=== PATIENT | male | born 1955 | race African-American/Black ===

== ENCOUNTER 2023-03-05 21:03 | Emergency (ER) | payer OTHER ==
[~2023-03-05] VITALS: Ht 188 cm; Wt 94.0 kg
[~2023-03-05 21:03] MED LIST: NIFE30TA83 PO
[2023-03-05 21:10] VITALS: TEMP 98.3; O2SAT 99
[2023-03-05] MEDS ORDERED: BACITRACIN ZINC OINT UDPKT TOP ONE (23:15)
[2023-03-05] MEDS ORDERED: LIDOCAINE HCL/EPINEPHRINE 1%-EPI 1:100,000 20 ML VIAL INFIL ONE (23:15)
[2023-03-05] MEDS ORDERED: HYDROCODONE/ACETAMINOPHEN 5/325MG TABLET PO ONE (23:30)
[2023-03-05] MEDS ORDERED: IBUPROFEN 400MG TABLET ONE (23:34)
[2023-03-05 23:45] VITALS: BP 136/78; PULSE 92; RESP 16
[2023-03-05] MEDS ORDERED: IBUPROFEN 800MG TABLET PO ONE (23:45)
[2023-03-05 23:56] LABS: HEPATITIS B SURFACE ANTIGEN NEGATIVE
[2023-03-06 00:24] LABS: HEPATITIS C VIR.AB 0.06 INDEXVAL (0.00-0.80)
[2023-03-06 00:34] LABS: RAPID HIV SCREEN NEGATIVE (NEGATIVE)
== END 2023-03-06 00:08 | disposition home or self-care (01) ==
LOC: ER 21:03
DX: S01.01XA Laceration without foreign body of scalp, initial encounter (principal); I10 Essential (primary) hypertension; W01.0XXA Fall on same level from slipping, tripping and stumbling without subsequent striking against object, initial encounter; Y93.89 Activity, other specified; Y92.89 Other specified places as the place of occurrence of the external cause; Y99.8 Other external cause status
CPT/HCPCS: 86703; 87340; 86803; 36415; 70450; 12001; 99284; J3490; Z7610 ×4